=== PATIENT | male | born 1965 | race Caucasian/White ===

== ENCOUNTER 2018-05-16 14:17 | Inpatient (IN) | payer OTHER ==
[~2018-05-16] VITALS: Ht 177.8 cm; Wt 95.3 kg
[2018-05-16] MEDS ORDERED: DEPO-TESTOSTER100 MG IM (14:28)
--- NOTE | 2018-05-16 14:45 | Emergency Room Report ---
History of Present Illness General Chief Complaint: Abnormal Labs Source: Patient Present Illness HPI 52-year-old male without any significant history presenting with 3 weeks of generalized weakness fatigue nausea. Patient had lab tests done by his doctor and was told that he has an elevated creatinine as well as elevated calcium levels. Patient just states that he has had very little appetite and also has just felt very generally weak. He denies any actual abdominal pain just complains of nausea. No vomiting. No fever no chills. Does complain of polydipsia and polyuria. States that this has never happened before. He does not take any medications and no vitamins. Denies any actual weight loss. No swelling of his throat. Allergies: Coded Allergies: No Known Allergies (Unverified , 05/16/18) Patient History Past Medical History: see triage record Past Surgical History: none Pertinent Family History: none Reviewed Nursing Documentation: PMH: Agreed; PSxH: Agreed Nursing Documentation-PMH Hx Hypertension: Yes Review of Systems All Other Systems: negative except mentioned in HPI Physical Exam Vital Signs Date Time Temp Pulse Resp B/P (MAP) Pulse Ox O2 Delivery O2 Flow Rate FiO2 05/16/18 14:24 98.5 82 17 127/85 97 Room Air 98.4 Sp02 EP Interpretation: reviewed, normal General Appearance: alert, GCS 15, non-toxic, mild distress Head: normocephalic, atraumatic Eyes: bilateral eye normal inspection, bilateral eye PERRL, bilateral eye EOMI ENT: normal ENT inspection, normal pharynx, normal voice, moist mucus membranes Neck: normal inspection, full range of motion, supple Respiratory: normal inspection, lungs clear, normal breath sounds, no respiratory distress, no retraction, no wheezing, speaking full sentences, chest symmetrical Cardiovascular #1: normal inspection, regular rate, rhythm, no edema, normal capillary refill Cardiovascular #2: 2+ radial (R), 2+ radial (L) Gastrointestinal: normal inspection, non tender, soft, non-distended, no guarding Genitourinary: no CVA tenderness Musculoskeletal: normal inspection, back normal, normal range of motion, non- tender Neurologic: normal inspection, alert, oriented x3, responsive, motor strength/ tone normal, sensory intact, normal gait, speech normal Psychiatric: normal inspection, judgement/insight normal, memory normal Skin: normal inspection, normal color, no rash, warm/dry, well hydrated, normal turgor Medical Decision Making Diagnostic Impression: Primary Impression: Hypercalcemia Additional Impression: Renal insufficiency ER Course 52-year-old male with abnormal left chest hypercalcemia and elevated creatinine DDX: Hypercalcemia due to malignancy, hyperparathyroidism, vitamin D intoxication, multiple myeloma, other endocrine abnormalities Plan: Obtain labs, ua, EKG, CXR Fluids ER course: Patient has been monitored during ED stay, HD stable He is given 2 L of normal saline [facility] does not carry calcitonin IM/SQ version and the intranasal form is not effective for hypercalcemia Disposition: Patient is to be admitted to telemetry D/W hospitalist Dr Oleary Please note that this Emergency Department Report was dictated using [employer] technology software, occasionally this can lead to erroneous entry secondary to interpretation by the dictation equipment. EKG Diagnostic Results EP Interpretation: Yes Rate: normal Rhythm: NSR ST Segments: No acute changes , however prolonged OK at 152 as well as slight shortening of the QTC at 371 ASA given to patient: No Rhythm Strip EP Interpretation: Yes Rate: 80 Rhythm: NSR, no PVCs, no ectopy Chest X-ray CXR: Ordered: Yes 1 view Indication: Rule out mass EP interpretation: Yes Interpretation: No consolidation, no effusion, no PTX, no acute cardiopulmonary disease Impression: No acute disease Electronically signed by Reinier Strong MD Laboratory Tests Test 05/16/18 14:45 05/16/18 14:57 Urine Color Yellow Urine Appearance Clear Urine pH 6.5 (4.5-8.0) Urine Specific [place] 1.015 (1.005-1.035) Urine Protein Negative (NEGATIVE) Urine Glucose (UA) Negative (NEGATIVE) Urine Ketones Negative (NEGATIVE) Urine Occult Blood 4+ (NEGATIVE) H Urine Nitrite Negative (NEGATIVE) Urine Bilirubin Negative (NEGATIVE) Urine Urobilinogen 1 MG/DL (0.0-1.0) H Urine Leukocyte Esterase Negative (NEGATIVE) Urine RBC 5-10 /HPF (0 - 0) H Urine WBC 0-2 /HPF (0 - 0) Urine Squamous Epithelial Cells None /LPF (NONE/OCC) Urine Amorphous Sediment Few /LPF (NONE) H Urine Bacteria Occasional /HPF (NONE) White Blood Count 8.0 K/UL (4.8-10.8) Red Blood Count 5.73 M/UL (4.70-6.10) Hemoglobin 14.9 G/DL (14.2-18.0) Hematocrit 48.3 % (42.0-52.0) Mean Corpuscular Volume 84 FL (80-99) Mean Corpuscular Hemoglobin 25.9 PG (27.0-31.0) L Mean Corpuscular Hemoglobin Concent 30.8 G/DL (32.0-36.0) L Red Cell Distribution Width 18.8 % (11.6-14.8) H Platelet Count 303 K/UL (150-450) Mean Platelet Volume 7.2 FL (6.5-10.1) Neutrophils (%) (Auto) 58.8 % (45.0-75.0) Lymphocytes (%) (Auto) 25.2 % (20.0-45.0) Monocytes (%) (Auto) 13.2 % (1.0-10.0) H Eosinophils (%) (Auto) 1.6 % (0.0-3.0) Basophils (%) (Auto) 1.3 % (0.0-2.0) Sodium Level 137 MMOL/L (136-145) Potassium Level 4.8 MMOL/L (3.5-5.1) Chloride Level 103 MMOL/L (98-107) Carbon Dioxide Level 30 MMOL/L (21-32) Anion Gap 4 mmol/L (5-15) L Blood Urea Nitrogen 22 mg/dL (7-18) H Creatinine 2.1 MG/DL (0.55-1.30) H Estimate Glomerular Filtration Rate 33.2 mL/min (>60) Glucose Level 101 MG/DL (74-106) Calcium Level 14.4 MG/DL (8.5-10.1) *H Calcium (Send out) Pending Ionized Calcium (Measured) Pending Phosphorus Level 3.5 MG/DL (2.5-4.9) Magnesium Level 1.4 MG/DL (1.8-2.4) L Total Bilirubin 0.9 MG/DL (0.2-1.0) Aspartate Amino Transferase (AST) 63 U/L (15-37) H Alanine Aminotransferase (ALT) 59 U/L (12-78) Alkaline Phosphatase 48 U/L (46-116) Troponin I 0.009 ng/mL (0.000-0.056) Total Protein 7.4 G/DL (6.4-8.2) Albumin 3.1 G/DL (3.4-5.0) L Globulin 4.3 g/dL Albumin/Globulin Ratio 0.7 (1.0-2.7) L Parathyroid Hormone (Intact) Pending Last Vital Signs Date Time Temp Pulse Resp B/P (MAP) Pulse Ox O2 Delivery O2 Flow Rate FiO2 05/16/18 14:24 98.5 82 17 127/85 97 Room Air 98.4 Disposition: ADMITTED INPATIENT Condition: Serious RetinoReinier M.D. May 16, 2018 14:45
[2018-05-16 15:16] LABS: BASOPHILS % (AUTO) 1.3 % (0.0-2.0); EOSINOPHILS % (AUTO) 1.6 % (0.0-3.0); HEMATOCRIT 48.3 % (42.0-52.0); HEMOGLOBIN 14.9 G/DL (14.2-18.0); LYMPHOCYTES % (AUTO) 25.2 % (20.0-45.0); MEAN CORPUSCULAR VOLUME 84 FL (80-99); MONOCYTES % (AUTO) 13.2 % (1.0-10.0); NEUTROPHILS % (AUTO) 58.8 % (45.0-75.0); PLATELET COUNT 303 K/UL (150-450); RED BLOOD COUNT 5.73 M/UL (4.70-6.10); RED CELL DISTRIBUTION WIDTH 18.8 % (11.6-14.8)
--- NOTE | 2018-05-16 15:23 | Diagnostic Imaging Report ---
Indication: Chest pain Comparison: None A single view chest radiograph was obtained. Findings: Cardiomediastinal appearance is within normal limits for age. Pulmonary vascularity is appropriate. The diaphragmatic contour is smooth and costophrenic angles are sharp. No pleural effusions are identified. The bones are unremarkable. Impression: No acute findings
[2018-05-16 15:32] LABS: ALANINE AMINOTRANSFERASE 59 U/L (12-78); ALBUMIN 3.1 G/DL (3.4-5.0); ALBUMIN/GLOBULIN RATIO 0.7 (1.0-2.7); ALKALINE PHOSPHATASE 48 U/L (46-116); ANION GAP 4 mmol/L (5-15); ASPARTATE AMINO TRANSFERASE 63 U/L (15-37); BILIRUBIN,TOTAL 0.9 MG/DL (0.2-1.0); BLOOD UREA NITROGEN 22 mg/dL (7-18); CARBON DIOXIDE 30 MMOL/L (21-32); CHLORIDE 103 MMOL/L (98-107); CREATININE 2.1 MG/DL (0.55-1.30); PHOSPHORUS 3.5 MG/DL (2.5-4.9); POTASSIUM 4.8 MMOL/L (3.5-5.1); SODIUM 137 MMOL/L (136-145)
[2018-05-16 15:33] LABS: CALCIUM 14.4 MG/DL (8.5-10.1)
[2018-05-16 15:36] VITALS: BP 121/80
[2018-05-16] MEDS ORDERED: IRBESARTAN-HCT1 EAC2 PO (17:17)
[2018-05-16] MEDS ORDERED: DEXILANT60 MG ORAL (17:19)
[2018-05-16] MEDS ORDERED: ANASTROZOLE1 MG PO (17:19)
[2018-05-16] MEDS ORDERED: ATORVASTATIN CA10 MG ORAL (17:19)
[2018-05-16] MEDS ORDERED: AMBIEN10 M1 ORAL (17:19)
[2018-05-16 17:45] LABS: APPEARANCE,URINE CLEAR; BILIRUBIN, URINE NEGATIVE (NEGATIVE); GLUCOSE, URINE (UA) NEGATIVE (NEGATIVE); KETONES,URINE NEGATIVE (NEGATIVE); LEUKOCYTE ESTERASE ,URINE NEGATIVE (NEGATIVE); NITRITE,URINE NEGATIVE (NEGATIVE); PH,URINE 6.5 (4.5-8.0); PROTEIN,URINE NEGATIVE (NEGATIVE); UROBILINOGEN,URINE 1 MG/DL (0.0-1.0)
[2018-05-16 17:46] LABS: COLOR,URINE YELLOW
[2018-05-16 18:31] VITALS: BP 115/74
[2018-05-16 19:35] VITALS: BP 122/80
[2018-05-16 20:00] VITALS: BP 136/91
[2018-05-16] MEDS ORDERED: Acetaminophen 500mg (ES) tab ORAL PRN (20:00)
--- NOTE | 2018-05-16 20:17 | Consultation ---
Consult Note Consult Note asked to eval for renal failure and Hypercalcemia 52-year-old male without any significant history presenting with 3 weeks of generalized weakness fatigue nausea. Patient had lab tests done by his doctor and was told that he has an elevated creatinine as well as elevated calcium levels. Patient just states that he has had very little appetite and also has just felt very generally weak. He denies any actual abdominal pain just complains of nausea. No vomiting. No fever no chills. Does complain of polydipsia and polyuria. States that this has never happened before. He does not take any medications and no vitamins. Denies any actual weight loss. No swelling of his throat. HTN on HCTZ and Ibesartan has frequent urination and thirst and weakness . Assessment/Plan Sever HyperCalcemia , Likely due to dehydration + HCTZ Acute renal failure Low albumin level Plan Hydrate- PRN meds for BP no HCTZ monitor Ca and Phos PTH and TSH level Vit D level Per orders discussed with RONEY BARAJAS May 16, 2018 20:17
[2018-05-16] MEDS: Tamsulosin 0.4mg cap ORAL SCH (20:58)
[2018-05-17] VITALS: BP 124/71
[2018-05-17 04:00] VITALS: BP 136/85
[2018-05-17] MEDS ORDERED: Milk of Magnesia 30ml Ud ORAL PRN (07:30)
[2018-05-17 07:35] LABS: BASOPHILS % (AUTO) 1.1 % (0.0-2.0); EOSINOPHILS % (AUTO) 3.8 % (0.0-3.0); HEMATOCRIT 44.4 % (42.0-52.0); LYMPHOCYTES % (AUTO) 22.5 % (20.0-45.0); MEAN CORPUSCULAR VOLUME 85 FL (80-99); NEUTROPHILS % (AUTO) 60.6 % (45.0-75.0); PLATELET COUNT 255 K/UL (150-450); RED BLOOD COUNT 5.23 M/UL (4.70-6.10); RED CELL DISTRIBUTION WIDTH 19.2 % (11.6-14.8); WHITE BLOOD COUNT 7.2 K/UL (4.8-10.8)
[2018-05-17 08:00] VITALS: BP 141/83
[2018-05-17] MEDS: Sennosides 8.6mg ORAL SCH (08:19)
[2018-05-17 08:21] LABS: % IRON SATURATION 14 % (15-50); IRON 59 ug/dL (50-175); TOTAL IRON BINDING CAPACITY 429 ug/dL (250-450)
[2018-05-17 08:35] LABS: ALANINE AMINOTRANSFERASE 53 U/L (12-78); ALBUMIN 2.6 G/DL (3.4-5.0); ALBUMIN/GLOBULIN RATIO 0.7 (1.0-2.7); ALKALINE PHOSPHATASE 44 U/L (46-116); ANION GAP 4 mmol/L (5-15); ASPARTATE AMINO TRANSFERASE 37 U/L (15-37); BILIRUBIN,TOTAL 0.5 MG/DL (0.2-1.0); BLOOD UREA NITROGEN 21 mg/dL (7-18); CALCIUM 11.8 MG/DL (8.5-10.1); CARBON DIOXIDE 28 MMOL/L (21-32); CHLORIDE 107 MMOL/L (98-107); CHOLESTEROL 80 MG/DL (< 200); CREATINE KINASE 343 U/L (26-308); CREATININE 1.9 MG/DL (0.55-1.30); FERRITIN 60 NG/ML (8-388); GAMMA GLUTAMYL TRANSPEPTIDASE 13 U/L (5-85); HDL CHOLESTEROL 13 MG/DL (40-60); PHOSPHORUS 2.6 MG/DL (2.5-4.9); POTASSIUM 4.5 MMOL/L (3.5-5.1); SODIUM 139 MMOL/L (136-145); TRIGLYCERIDES 59 MG/DL (30-150)
[2018-05-17] MEDS ORDERED: Docusate 100mg cap ORAL SCH (09:00)
[2018-05-17 12:00] VITALS: BP 126/79
--- NOTE | 2018-05-17 12:01 | History and Physical Report ---
DATE OF ADMISSION: 05/16/2018 HISTORY: The patient is here for renal failure and hypercalcemia. The patient has calcium of 14 and has severe dehydration. He has been complaining of weakness, nausea, and fatigue for 3 weeks as well as frequent urination and somewhat nausea and borderline constipation. The patient takes diuretics for his elevated blood pressure. The patient also has renal failure and has been having fatigue for 3 weeks as well as frequent urination. Denies abdominal pain. Denies any pain. Denies any cold symptoms. Denies orthopnea. PAST MEDICAL HISTORY: Significant for hyperlipidemia, gastroesophageal reflux disease, hypertension, low testosterone, insomnia, and left shoulder pain, which is chronic. PAST SURGICAL HISTORY: Kidney stones removal. ALLERGIES: No known allergies. SOCIAL HISTORY: The patient has history of drug abuse. No history of smoking. No history of alcohol abuse. FAMILY HISTORY: Noncontributory. REVIEW OF SYSTEMS: HEENT: Denies headaches. RESPIRATORY: Denies shortness of breath. Denies cough. CARDIOVASCULAR: Denies chest pain. No orthopnea. GASTROINTESTINAL: He does have nausea and constipation. Denies abdominal pain. EXTREMITIES: Does have chronic left shoulder pain, which is chronic. Denies any angina, but does have fatigue and weakness for three weeks. PHYSICAL EXAMINATION: VITAL SIGNS: Temperature 98.3, pulse is 94, and blood pressure is 115/74. HEENT: PERRLA. NECK: Supple. No lymphadenopathy. CHEST: Clear to auscultation. GASTROINTESTINAL: Soft, nontender, and nondistended. No organomegaly. EXTREMITIES: No edema. Reflexes are equal on both sides. Moves all four extremities. NEUROLOGIC: Cranial nerves II through XII are intact. LABORATORY DATA: WBC of 8, hemoglobin of 14.9 and platelets of 303. Sodium 137, potassium 4.8, chloride 103, carbon dioxide of 30, BUN of 22, creatinine of 2.1, and glucose of 101. Ionized calcium 1.65. Magnesium 1.4. Calcium of 14.4. ASSESSMENT AND PLAN: Hypercalcemia, which is causing most of his symptoms. I have asked Dr. Salinas to see the patient for the treatment of dehydration. Hypercalcemia could be also due to his diuretic use. The patient will need aggressive intravenous hydration. Rosita Larsen M.D. DR: JESS JOB#: [id number] CC:
--- NOTE | 2018-05-17 13:08 | Cardiology Report ---
APPROVED REPORT EKG Measurement Heart [id number] Normal sinus rhythm Nonspecific T wave abnormality Abnormal ECG
--- NOTE | 2018-05-17 13:22 | Nephrology Progress Note ---
Assessment/Plan Problem List: (1) Renal insufficiency (2) Hypercalcemia Assessment: high PTH (3) Hypoalbuminemia Assessment: ? decrease production?? (4) Hyperparathyroidism Assessment Ca lower , but corrected for low albumin remains high Plan NS 200 cc hour- AREDIA 60 mg once Mag IV monitor Ca Phos Kidney MICAH Subjective ROS Limited/Unobtainable: No Constitutional: Reports: malaise Objective Objective Last 24 Hour Vital Signs Date Time Temp Pulse Resp B/P (MAP) Pulse Ox O2 Delivery O2 Flow Rate FiO2 05/17/18 08:00 97 05/17/18 08:00 97.3 95 19 141/83 97 Room Air 97.3 05/17/18 04:00 98.6 82 18 136/85 97 Room Air 98.6 05/17/18 04:00 74 05/17/18 00:00 90 05/17/18 00:00 98.2 81 18 124/71 95 Room Air 98.2 05/16/18 20:00 98.2 88 18 136/91 96 Room Air 98.2 05/16/18 20:00 72 05/16/18 19:35 98.3 88 20 122/80 98 Room Air 208.9 05/16/18 19:35 98.3 88 20 122/80 98 Room Air 98.3 05/16/18 18:31 98.3 94 15 115/74 97 Room Air 98.3 05/16/18 15:36 77 16 121/80 100 Room Air 05/16/18 14:24 98.5 82 17 127/85 97 Room Air 98.4 Intake and Output 05/16/18 05/17/18 19:00 07:00 Intake Total 2000 ml 2660 ml Output Total 850 ml Balance 2000 ml 1810 ml Intake Oral 800 ml IV Total 2000 ml 1860 ml Output Urine Total 850 ml # Voids 1 2 Laboratory Tests 05/16/18 14:45: Urine Color Yellow, Urine Appearance Clear, Urine pH 6.5, Urine Specific [place] 1.015, Urine Protein Negative, Urine Glucose (UA) Negative, Urine Ketones Negative, Urine Occult Blood 4+H, Urine Nitrite Negative, Urine Bilirubin Negative, Urine Urobilinogen 1H, Urine Leukocyte Esterase Negative, Urine RBC 5-10H, Urine WBC 0-2, Urine Squamous Epithelial Cells None, Urine Amorphous Sediment FewH, Urine Bacteria Occasional, Urine Random Sodium 76 05/16/18 14:57: White Blood Count 8.0, Red Blood Count 5.73, Hemoglobin 14.9, Hematocrit 48.3, Mean Corpuscular Volume 84, Mean Corpuscular Hemoglobin 25.9L, Mean Corpuscular Hemoglobin Concent 30.8L, Red Cell Distribution Width 18.8H, Platelet Count 303 , Mean Platelet Volume 7.2, Neutrophils (%) (Auto) 58.8, Lymphocytes (%) (Auto) 25.2, Monocytes (%) (Auto) 13.2H, Eosinophils (%) (Auto) 1.6, Basophils (%) ( Auto) 1.3, Sodium Level 137, Potassium Level 4.8, Chloride Level 103, Carbon Dioxide Level 30, Anion Gap 4L, Blood Urea Nitrogen 22H, Creatinine 2.1H, Estimat Glomerular Filtration Rate 33.2, Glucose Level 101, Calcium Level 14.4*H , Calcium (Send out) 14.2*H, Ionized Calcium (Measured) 1.65*H, Phosphorus Level 3.5, Magnesium Level 1.4L, Total Bilirubin 0.9, Aspartate Amino Transf ( AST/SGOT) 63H, Alanine Aminotransferase (ALT/SGPT) 59, Alkaline Phosphatase 48, Troponin I 0.009, C-Reactive Protein, Quantitative < 0.4, Total Protein 7.4, Albumin 3.1L, Globulin 4.3, Albumin/Globulin Ratio 0.7L, PTH (Intact) Whole Molecule Comment, Parathyroid Hormone (Intact) 245H 05/17/18 06:10: White Blood Count 7.2, Red Blood Count 5.23, Hemoglobin 14.0L, Hematocrit 44.4, Mean Corpuscular Volume 85, Mean Corpuscular Hemoglobin 26.7L, Mean Corpuscular Hemoglobin Concent 31.5L, Red Cell Distribution Width 19.2H, Platelet Count 255 , Mean Platelet Volume 7.4, Neutrophils (%) (Auto) 60.6, Lymphocytes (%) (Auto) 22.5, Monocytes (%) (Auto) 12.0H, Eosinophils (%) (Auto) 3.8H, Basophils (%) ( Auto) 1.1, Sodium Level 139, Potassium Level 4.5, Chloride Level 107, Carbon Dioxide Level 28, Anion Gap 4L, Blood Urea Nitrogen 21H, Creatinine 1.9H, Estimat Glomerular Filtration Rate 37.3, Glucose Level 98, Calcium Level 11.8H, Phosphorus Level 2.6, Magnesium Level 1.3L, Total Bilirubin 0.5, Aspartate Amino Transf (AST/SGOT) 37, Alanine Aminotransferase (ALT/SGPT) 53, Alkaline Phosphatase 44L, Troponin I 0.021, Total Protein 6.4, Albumin 2.6L, Globulin 3.8 , Albumin/Globulin Ratio 0.7L, Hemoglobin A1c 5.2, Uric Acid 5.9, Iron Level 59 , Total Iron Binding Capacity 429, Percent Iron Saturation 14L, Unsaturated Iron Binding 370H, Ferritin 60, Gamma Glutamyl Transpeptidase 13, Total Creatine Kinase 343H, Pro-B-Type Natriuretic Peptide 15, Triglycerides Level 59 , Cholesterol Level 80, LDL Cholesterol 73, HDL Cholesterol 13L, Cholesterol/ HDL Ratio 6.2H, Prostate Specific Antigen < 0.10L, Vitamin B12 Level 784, Vitamin D 25-Hydroxy [Pending], 25-Hydroxy Vitamin D2 [Pending], 25-Hydroxy Vitamin D3 [Pending], Folate 12.3, Thyroid Stimulating Hormone (TSH) 1.531, Total Testosterone [Pending] Height (Feet): 5 Height (Inches): 10.00 Weight (Pounds): 210 General Appearance: no apparent distress Cardiovascular: normal rate Respiratory/Chest: lungs clear Abdomen: soft RONEY GROSS May 17, 2018 13:22
[2018-05-17 14:32] LABS: APPEARANCE,URINE CLEAR; BILIRUBIN, URINE NEGATIVE (NEGATIVE); GLUCOSE, URINE (UA) NEGATIVE (NEGATIVE); KETONES,URINE NEGATIVE (NEGATIVE); LEUKOCYTE ESTERASE ,URINE NEGATIVE (NEGATIVE); NITRITE,URINE NEGATIVE (NEGATIVE); PH,URINE 6.5 (4.5-8.0); PROTEIN,URINE NEGATIVE (NEGATIVE); UROBILINOGEN,URINE 4 MG/DL (0.0-1.0)
[2018-05-17 14:38] LABS: COLOR,URINE YELLOW
--- NOTE | 2018-05-17 15:54 | Diagnostic Imaging Report ---
Indication: Acute renal failure, elevated calcium, elevated creatinine Technique: Grayscale and duplex images of the kidneys, retroperitoneum, and bladder were obtained. Comparison: none Findings: Right kidney measures 14.6 cm in length. Left kidney measures 12.2 cm in length. Both kidneys demonstrate normal echogenicity. No hydronephrosis. Shadowing echogenic foci are seen in the left lower pole renal sinus. No other focal abnormality. Bladder volume is 316 mL. Prominent prostate with calcifications, volume calculated at 41 mL. Bilateral ureteral jets are demonstrated. Normal inferior vena cava. Impression: Negative for hydronephrosis Possible left renal calyceal calculi Prominent prostate.
[2018-05-17 16:00] VITALS: BP 146/78
[2018-05-17] MEDS ORDERED: Pamidronate Disodium Inj 60 MG in Sodium Chloride 500ML 550 ML IVPB SCH (16:00)
[2018-05-17] MEDS: Docusate 100mg cap ORAL SCH (17:14)
[2018-05-17 20:00] VITALS: BP 114/86
[2018-05-17] MEDS: Tamsulosin 0.4mg cap ORAL SCH (21:38)
[2018-05-18] VITALS: BP 102/62
[2018-05-18 04:00] VITALS: BP 117/69
[2018-05-18 05:50] LABS: BASOPHILS % (AUTO) 1.2 % (0.0-2.0); EOSINOPHILS % (AUTO) 4.6 % (0.0-3.0); HEMATOCRIT 37.3 % (42.0-52.0); HEMOGLOBIN 12.2 G/DL (14.2-18.0); LYMPHOCYTES % (AUTO) 24.4 % (20.0-45.0); MEAN CORPUSCULAR VOLUME 85 FL (80-99); MONOCYTES % (AUTO) 11.7 % (1.0-10.0); NEUTROPHILS % (AUTO) 58.1 % (45.0-75.0); PLATELET COUNT 210 K/UL (150-450); RED BLOOD COUNT 4.39 M/UL (4.70-6.10); RED CELL DISTRIBUTION WIDTH 18.9 % (11.6-14.8); WHITE BLOOD COUNT 6.6 K/UL (4.8-10.8)
[2018-05-18 06:11] LABS: ALANINE AMINOTRANSFERASE 42 U/L (12-78); ALBUMIN 2.2 G/DL (3.4-5.0); ALBUMIN/GLOBULIN RATIO 0.7 (1.0-2.7); ALKALINE PHOSPHATASE 40 U/L (46-116); ANION GAP 1 mmol/L (5-15); ASPARTATE AMINO TRANSFERASE 45 U/L (15-37); BILIRUBIN,TOTAL 0.3 MG/DL (0.2-1.0); BLOOD UREA NITROGEN 20 mg/dL (7-18); CALCIUM 10.4 MG/DL (8.5-10.1); CARBON DIOXIDE 28 MMOL/L (21-32); CHLORIDE 110 MMOL/L (98-107); CREATININE 1.9 MG/DL (0.55-1.30); PHOSPHORUS 2.4 MG/DL (2.5-4.9); POTASSIUM 4.9 MMOL/L (3.5-5.1); SODIUM 139 MMOL/L (136-145)
[2018-05-18 08:00] VITALS: BP 122/76
[2018-05-18] MEDS: Sennosides 8.6mg ORAL SCH (09:53)
[2018-05-18] MEDS: Docusate 100mg cap ORAL SCH ×3 (09:53→18:23)
--- NOTE | 2018-05-18 10:37 | Nephrology Progress Note ---
Assessment/Plan Problem List: (1) Hypercalcemia Assessment: high PTH (2) Renal insufficiency Assessment: likely chronic (3) Hypoalbuminemia Assessment: ? decrease production?? (4) Hyperparathyroidism Assessment: likely Parathyroid Adenoma Assessment Ca lower , but corrected for low albumin remains high Plan NS down to 125 cc hour AREDIA 60 mg once given 05/17 Mag IV again monitor Ca Phos Phos PO Kidney MICAH noted need Parathyroid imaging and if Adenoma then surgery waiting for Testostron and Vit D level Endo advise Subjective ROS Limited/Unobtainable: No Constitutional: Reports: other - stronger Objective Objective Last 24 Hour Vital Signs Date Time Temp Pulse Resp B/P (MAP) Pulse Ox O2 Delivery O2 Flow Rate FiO2 05/18/18 04:00 98.1 70 20 117/69 95 Room Air 98.1 05/18/18 04:00 67 05/18/18 00:00 98.6 70 18 102/62 95 Room Air 98.6 05/18/18 00:00 70 05/17/18 20:00 98.9 75 18 114/86 96 Room Air 98.9 05/17/18 20:00 76 05/17/18 16:00 78 05/17/18 16:00 97.4 83 19 146/78 96 Room Air 97.4 05/17/18 12:00 108 05/17/18 12:00 97.9 83 20 126/79 96 Room Air 97.9 Intake and Output 05/17/18 05/18/18 19:00 07:00 Intake Total 2800 ml 2899.6 ml Output Total 1650 ml 875 ml Balance 1150 ml 2024.6 ml Intake Oral 800 ml 800 ml IV Total 2000 ml 2099.6 ml Output Urine Total 1650 ml 875 ml # Voids 1 Laboratory Tests 05/17/18 12:00: Urine Color Yellow, Urine Appearance Clear, Urine pH 6.5, Urine Specific [place] 1.015, Urine Protein Negative, Urine Glucose (UA) Negative, Urine Ketones Negative, Urine Occult Blood 3+H, Urine Nitrite Negative, Urine Bilirubin Negative, Urine Urobilinogen 4H, Urine Leukocyte Esterase Negative, Urine RBC 2-4H, Urine WBC 0-2, Urine Squamous Epithelial Cells Few, Urine Bacteria Occasional 05/18/18 05:20: White Blood Count 6.6, Red Blood Count 4.39L, Hemoglobin 12.2L, Hematocrit 37.3L , Mean Corpuscular Volume 85, Mean Corpuscular Hemoglobin 27.8, Mean Corpuscular Hemoglobin Concent 32.6, Red Cell Distribution Width 18.9H, Platelet Count 210, Mean Platelet Volume 8.8, Neutrophils (%) (Auto) 58.1, Lymphocytes (%) (Auto) 24.4, Monocytes (%) (Auto) 11.7H, Eosinophils (%) (Auto) 4.6H, Basophils (%) (Auto) 1.2, Sodium Level 139, Potassium Level 4.9, Chloride Level 110H, Carbon Dioxide Level 28, Anion Gap 1L, Blood Urea Nitrogen 20H, Creatinine 1.9H, Estimat Glomerular Filtration Rate 37.3, Glucose Level 90, Calcium Level 10.4H, Phosphorus Level 2.4L, Magnesium Level 1.6L, Total Bilirubin 0.3, Aspartate Amino Transf (AST/SGOT) 45H, Alanine Aminotransferase ( ALT/SGPT) 42, Alkaline Phosphatase 40L, Total Protein 5.5L, Albumin 2.2L, Globulin 3.3, Albumin/Globulin Ratio 0.7L Height (Feet): 5 Height (Inches): 10.00 Weight (Pounds): 210 General Appearance: no apparent distress Objective no change RONEY GROSS May 18, 2018 10:37
[2018-05-18 12:00] VITALS: BP 124/80
[2018-05-18] MEDS: Phospha 250 Neutral tab ORAL SCH ×2 (12:16→18:24)
[2018-05-18 16:00] VITALS: BP 132/80
--- NOTE | 2018-05-18 16:40 | Diagnostic Imaging Report ---
EXAM: US Soft Tissues Head and Neck, Thyroid CLINICAL HISTORY: SCREEN TECHNIQUE: Real-time ultrasound scan of the thyroid gland and soft tissues of the neck with image documentation. COMPARISON: No relevant prior studies available. FINDINGS: Left thyroid lobe: Left lobe of the thyroid gland measures 3.8 x 1.7 x 2.1 cm. Nodule measures 2 x 0.9 cm. Right thyroid lobe: Right lobe of the thyroid measures 3.8 x 1.5 x 1.7 cm. Nodules, largest measures 9 mm. Isthmus: The isthmus measures 3 mm. No enlarged or calcified nodules. IMPRESSION: Bilateral thyroid nodules.
[2018-05-18] MEDS ORDERED: Tubing IV Secondary IV ONE ×2 (17:32→17:51)
--- NOTE | 2018-05-18 19:45 | Consultation ---
DATE OF CONSULTATION: 05/18/2018 NOTE: POOR AUDIO ENDOCRINOLOGY CONSULTATION CONSULTING PHYSICIAN: Julius Madrigal M.D. REFERRING PHYSICIAN: Marcelo Salinas M.D. HISTORY OF PRESENT ILLNESS: The patient is a 52-year-old male who was admitted with renal failure and hypercalcemia which was noted on the recent visit with his primary care physician, Dr. Caleb Ingram. The patient went to see his primary care physician complaining of a progressive weakness. On presentation, he was noted to have a serum calcium of 14.4 with a creatinine of 2.1. He was started on IV hydration and given a dose of Aredia. Serum calcium significantly dropped to 11.8 and subsequently to 10.4. The patient's parathyroid hormone level is 250 . TSH is 1.5 and vitamin D metabolites are pending. PAST MEDICAL HISTORY: 1. Nephrolithiasis in his 20s. 2. Hypogonadism. 3. Dyslipidemia. 4. GERD. 5. Hypertension. 6. Insomnia. 7. Shoulder pain. PAST SURGICAL HISTORY: Right kidney stone removal. MEDICATIONS: As an outpatient 1. Anastrozole. 2. Atorvastatin. 3. Dexilant. 4. Irbesartan and hydrochlorothiazide. 5. Testosterone injection 100 mg weekly. 6. Ambien. ALLERGY TO MEDICATION: None. SOCIAL HISTORY: The patient is a drug rep. No history of smoking or alcohol use. FAMILY HISTORY: Noncontributory. REVIEW OF SYSTEMS: As per history of present illness. PHYSICAL EXAMINATION: VITAL SIGNS: Blood pressure is 120/80, pulse 72, temperature 98, and respiratory rate 18. HEENT: Pupils are equal and reactive to light and accommodation. Sclerae anicteric. NECK: No JVD. No thyromegaly. LUNGS: Clear. HEART: Regular rate and rhythm. ABDOMEN: Positive bowel sounds. EXTREMITIES: No clubbing, cyanosis, or edema. LABORATORY AND DIAGNOSTIC DATA: Laboratory values discussed in history of present illness. DIAGNOSES: 1. Primary hyperparathyroidism with hypercalcemia. 2. Acute kidney injury. 3. Hypoalbuminemia. DISCUSSION: Primary hyperparathyroidism was confirmed since the PTH and serum calcium are both elevated and that had led to acute kidney injury. Serum calcium as well as creatinine has been improving after administration of IV fluids. The patient received a dose of Aredia, which is appropriate as the calcium is coming down. We should be able to discharge this patient by tomorrow. We are getting a thyroid ultrasound now, which will help with the localization of the parathyroid adenoma, but he does need to have an official parathyroid scan to be done as an outpatient. He is a surgical candidate and as an outpatient, he will be referred to a parathyroid surgeon. Thank you, Dr. Salinas, for the courtesy of this consultation. Julius Madrigal M.D. DR: WILLIAM JOB#: [id number] CC: DOMINIQUE
[2018-05-18 20:00] VITALS: BP 125/68
[2018-05-18] MEDS: Tamsulosin 0.4mg cap ORAL SCH (20:27)
--- NOTE | 2018-05-18 20:59 | General Progress Note ---
Assessment/Plan Problem List: (1) Renal insufficiency ICD Codes: N28.9 - Disorder of kidney and ureter, unspecified SNOMED: 315719443, 683126513 (2) Hypercalcemia ICD Codes: E83.52 - Hypercalcemia SNOMED: 22673794, 565578742 (3) Hyperparathyroidism ICD Codes: E21.3 - Hyperparathyroidism, unspecified SNOMED: 99298992 Status: progressing Assessment/Plan hypercalcemia improved w hydration hyperparathroid consuled dr rg for treatment of hyper paraythryoid Subjective ROS Limited/Unobtainable: Yes Allergies: Coded Allergies: No Known Allergies (Unverified , 05/16/18) Objective Last 24 Hour Vital Signs Date Time Temp Pulse Resp B/P (MAP) Pulse Ox O2 Delivery O2 Flow Rate FiO2 05/18/18 16:00 91 05/18/18 16:00 98.2 79 23 132/80 99 Room Air 98.2 05/18/18 12:00 98.1 80 22 124/80 97 Room Air 98.1 05/18/18 12:00 88 05/18/18 08:00 98.2 80 22 122/76 99 Room Air 98.2 05/18/18 08:00 81 05/18/18 04:00 98.1 70 20 117/69 95 Room Air 98.1 05/18/18 04:00 67 05/18/18 00:00 98.6 70 18 102/62 95 Room Air 98.6 05/18/18 00:00 70 Intake and Output 05/17/18 05/18/18 19:00 07:00 Intake Total 2800 ml 2899.6 ml Output Total 1650 ml 875 ml Balance 1150 ml 2024.6 ml Intake Oral 800 ml 800 ml IV Total 2000 ml 2099.6 ml Output Urine Total 1650 ml 875 ml # Voids 1 Laboratory Tests 05/18/18 05:20: White Blood Count 6.6, Red Blood Count 4.39L, Hemoglobin 12.2L, Hematocrit 37.3L , Mean Corpuscular Volume 85, Mean Corpuscular Hemoglobin 27.8, Mean Corpuscular Hemoglobin Concent 32.6, Red Cell Distribution Width 18.9H, Platelet Count 210, Mean Platelet Volume 8.8, Neutrophils (%) (Auto) 58.1, Lymphocytes (%) (Auto) 24.4, Monocytes (%) (Auto) 11.7H, Eosinophils (%) (Auto) 4.6H, Basophils (%) (Auto) 1.2, Sodium Level 139, Potassium Level 4.9, Chloride Level 110H, Carbon Dioxide Level 28, Anion Gap 1L, Blood Urea Nitrogen 20H, Creatinine 1.9H, Estimat Glomerular Filtration Rate 37.3, Glucose Level 90, Calcium Level 10.4H, Phosphorus Level 2.4L, Magnesium Level 1.6L, Total Bilirubin 0.3, Aspartate Amino Transf (AST/SGOT) 45H, Alanine Aminotransferase ( ALT/SGPT) 42, Alkaline Phosphatase 40L, Total Protein 5.5L, Albumin 2.2L, Globulin 3.3, Albumin/Globulin Ratio 0.7L Height (Feet): 5 Height (Inches): 10.00 Weight (Pounds): 210 Rosita Larsen MD May 18, 2018 20:59
[2018-05-19] VITALS: BP 123/64
[2018-05-19 04:00] VITALS: BP 134/77
[2018-05-19 07:26] LABS: BASOPHILS % (AUTO) 1.2 % (0.0-2.0); EOSINOPHILS % (AUTO) 5.4 % (0.0-3.0); HEMOGLOBIN 12.3 G/DL (14.2-18.0); LYMPHOCYTES % (AUTO) 18.7 % (20.0-45.0); MEAN CORPUSCULAR VOLUME 83 FL (80-99); MONOCYTES % (AUTO) 10.4 % (1.0-10.0); NEUTROPHILS % (AUTO) 64.3 % (45.0-75.0); PLATELET COUNT 204 K/UL (150-450); RED BLOOD COUNT 4.57 M/UL (4.70-6.10); RED CELL DISTRIBUTION WIDTH 18.7 % (11.6-14.8); WHITE BLOOD COUNT 6.5 K/UL (4.8-10.8)
[2018-05-19 07:57] LABS: ALANINE AMINOTRANSFERASE 45 U/L (12-78); ALBUMIN 2.3 G/DL (3.4-5.0); ALBUMIN/GLOBULIN RATIO 0.7 (1.0-2.7); ALKALINE PHOSPHATASE 42 U/L (46-116); ANION GAP 3 mmol/L (5-15); ASPARTATE AMINO TRANSFERASE 38 U/L (15-37); BILIRUBIN,TOTAL 0.5 MG/DL (0.2-1.0); BLOOD UREA NITROGEN 17 mg/dL (7-18); CALCIUM 9.8 MG/DL (8.5-10.1); CARBON DIOXIDE 25 MMOL/L (21-32); CHLORIDE 110 MMOL/L (98-107); CREATININE 1.5 MG/DL (0.55-1.30); PHOSPHORUS 1.8 MG/DL (2.5-4.9); POTASSIUM 4.5 MMOL/L (3.5-5.1); SODIUM 138 MMOL/L (136-145)
[2018-05-19 08:00] VITALS: BP 128/70
[2018-05-19] MEDS: Docusate 100mg cap ORAL SCH ×2 (09:43→12:21)
[2018-05-19] MEDS: Phospha 250 Neutral tab ORAL SCH (09:43)
[2018-05-19] MEDS: Sennosides 8.6mg ORAL SCH (09:46)
--- NOTE | 2018-05-19 10:48 | General Progress Note ---
Assessment/Plan Problem List: (1) Thyroid nodule ICD Codes: E04.1 - Nontoxic single thyroid nodule SNOMED: 443073256 (2) Hyperparathyroidism ICD Codes: E21.3 - Hyperparathyroidism, unspecified SNOMED: 93351524 (3) Hypoalbuminemia ICD Codes: E88.09 - Other disorders of plasma-protein metabolism, not elsewhere classified SNOMED: 207490503 (4) Renal insufficiency ICD Codes: N28.9 - Disorder of kidney and ureter, unspecified SNOMED: 125107449, 770141953 (5) Hypercalcemia ICD Codes: E83.52 - Hypercalcemia SNOMED: 76132304, 317602380 Assessment/Plan serum Ca normalized replete Mg and Phos stable for DC home parathyroid scan as OP thyroid FNA as OP parathyroidectomy once work up is completed Subjective Allergies: Coded Allergies: No Known Allergies (Unverified , 05/16/18) All Systems: reviewed and negative except above Subjective doing fine no complaints Objective Last 24 Hour Vital Signs Date Time Temp Pulse Resp B/P (MAP) Pulse Ox O2 Delivery O2 Flow Rate FiO2 05/19/18 04:00 71 05/19/18 04:00 98.9 75 20 134/77 96 Room Air 98.9 05/19/18 00:00 98.8 71 18 123/64 97 Room Air 98.8 05/18/18 23:39 75 05/18/18 20:00 99.1 78 20 125/68 95 Room Air 99.1 05/18/18 19:50 82 05/18/18 16:00 91 05/18/18 16:00 98.2 79 23 132/80 99 Room Air 98.2 05/18/18 12:00 98.1 80 22 124/80 97 Room Air 98.1 05/18/18 12:00 88 Intake and Output 05/18/18 05/19/18 19:00 07:00 Intake Total 1745 ml 800 ml Output Total 400 ml 1350 ml Balance 1345 ml -550 ml Intake Oral 720 ml 800 ml IV Total 1025 ml Output Urine Total 400 ml 1350 ml # Voids 1 Laboratory Tests 05/19/18 05:50: White Blood Count 6.5, Red Blood Count 4.57L, Hemoglobin 12.3L, Hematocrit 38.0L , Mean Corpuscular Volume 83, Mean Corpuscular Hemoglobin 26.9L, Mean Corpuscular Hemoglobin Concent 32.3, Red Cell Distribution Width 18.7H, Platelet Count 204, Mean Platelet Volume 6.9, Neutrophils (%) (Auto) 64.3, Lymphocytes (%) (Auto) 18.7L, Monocytes (%) (Auto) 10.4H, Eosinophils (%) (Auto ) 5.4H, Basophils (%) (Auto) 1.2, Sodium Level 138, Potassium Level 4.5, Chloride Level 110H, Carbon Dioxide Level 25, Anion Gap 3L, Blood Urea Nitrogen 17, Creatinine 1.5H, Estimat Glomerular Filtration Rate 49.0, Glucose Level 90, Uric Acid 4.9, Calcium Level 9.8, Phosphorus Level 1.8L, Magnesium Level 1.6L, Total Bilirubin 0.5, Aspartate Amino Transf (AST/SGOT) 38H, Alanine Aminotransferase (ALT/SGPT) 45, Alkaline Phosphatase 42L, Total Protein 5.6L, Albumin 2.3L, Globulin 3.3, Albumin/Globulin Ratio 0.7L 05/19/18 07:55: C-Reactive Protein, Quantitative < 0.4 Height (Feet): 5 Height (Inches): 10.00 Weight (Pounds): 210 General Appearance: no apparent distress Neck: normal alignment Cardiovascular: normal rate Respiratory/Chest: chest wall non-tender Abdomen: normal bowel sounds Pelvis: normal external exam Edema: no edema noted Arm (L), no edema noted Arm (R), no edema noted Leg (L), no edema noted Leg (R), no edema noted Pedal (L), no edema noted Pedal (R), no edema noted Generalized Objective Current Medications Medications (Trade) Dose Ordered Sig/Cedrick Route PRN Reason Start Time Stop Time Status Last Admin Dose Admin Acetaminophen (Tylenol) 500 mg Q4H PRN ORAL Mild Pain/Temp > 100.5 05/16/18 20:00 06/15/18 19:59 05/17/18 21:39 Bisacodyl (Dulcolax) 10 mg DAILYPRN PRN RECTAL Constipation 05/17/18 07:30 06/16/18 07:29 Calcitonin [place] (Miacalcin) 1 sprays DAILY NASAL 05/18/18 11:00 06/17/18 10:59 05/19/18 09:42 Docusate Sodium (Colace) 100 mg TID ORAL 05/17/18 18:00 06/16/18 08:59 05/19/18 09:43 Lansoprazole (Prevacid) 30 mg DAILY ORAL 05/16/18 20:30 06/15/18 20:29 05/19/18 09:43 Magnesium Hydroxide (Mom) 30 ml DAILYPRN PRN ORAL Constipation 05/17/18 07:30 06/16/18 07:29 05/18/18 20:26 Magnesium Sulfate 100 ml @ 100 mls/hr Q1H IVPB 05/19/18 10:30 05/19/18 14:29 UNV Ondansetron HCl (Zofran) 4 mg Q6H PRN IVP Nausea & Vomiting 05/16/18 20:00 06/15/18 19:59 05/17/18 08:19 Phosphorus (Phospha 250 Neutral) 500 mg THREE TIMES A DAY ORAL 05/19/18 13:00 06/17/18 12:59 UNV Potassium Phosphate 20 mm/ Sodium Chloride 281.6667 ml @ 46.944 m... ONCE ONCE IVPB 05/19/18 10:30 05/19/18 16:29 UNV Sennosides (Senokot) 1 tab DAILY ORAL 05/17/18 09:00 06/16/18 08:59 05/19/18 09:46 Sodium Chloride 1,000 ml @ 125 mls/hr Q8H IV 05/18/18 10:30 06/15/18 10:29 05/19/18 02:47 Tamsulosin HCl (Flomax) 0.4 mg BEDTIME ORAL 05/16/18 21:00 06/15/18 20:59 05/18/18 20:27 Julius Madrigal MD May 19, 2018 10:48
--- NOTE | 2018-05-19 11:22 | Nephrology Progress Note ---
Assessment/Plan Problem List: (1) Hypercalcemia Assessment: high PTH (2) Renal insufficiency Assessment: likely chronic (3) Hypoalbuminemia Assessment: ? decrease production?? (4) Hyperparathyroidism Assessment: likely Parathyroid Adenoma Assessment Ca lower , Mag and Phos low Cr down to 1.5 has thyroid nodules in [facility] Plan OK TO DC FROM [facility] AND FOLLOW UP WITH DR VILLALPANDO OUT PATIENT NS down to 125 cc hour DC upon discharge AREDIA 60 mg once given 05/17 Mag IV again Phos PO and IV today Kidney and Neck MICAH noted need Parathyroid imaging and if Adenoma then surgery waiting for Testostron and Vit D level Endo advise appreciated Subjective ROS Limited/Unobtainable: No Constitutional: Reports: other - anxious to go home- has a flight to [place] Objective Objective Last 24 Hour Vital Signs Date Time Temp Pulse Resp B/P (MAP) Pulse Ox O2 Delivery O2 Flow Rate FiO2 05/19/18 04:00 71 05/19/18 04:00 98.9 75 20 134/77 96 Room Air 98.9 05/19/18 00:00 98.8 71 18 123/64 97 Room Air 98.8 05/18/18 23:39 75 05/18/18 20:00 99.1 78 20 125/68 95 Room Air 99.1 05/18/18 19:50 82 05/18/18 16:00 91 05/18/18 16:00 98.2 79 23 132/80 99 Room Air 98.2 05/18/18 12:00 98.1 80 22 124/80 97 Room Air 98.1 05/18/18 12:00 88 Intake and Output 05/18/18 05/19/18 19:00 07:00 Intake Total 1745 ml 800 ml Output Total 400 ml 1350 ml Balance 1345 ml -550 ml Intake Oral 720 ml 800 ml IV Total 1025 ml Output Urine Total 400 ml 1350 ml # Voids 1 Current Medications Medications (Trade) Dose Ordered Sig/Cedrick Route PRN Reason Start Time Stop Time Status Last Admin Dose Admin Acetaminophen (Tylenol) 500 mg Q4H PRN ORAL Mild Pain/Temp > 100.5 05/16/18 20:00 06/15/18 19:59 05/17/18 21:39 Bisacodyl (Dulcolax) 10 mg DAILYPRN PRN RECTAL Constipation 05/17/18 07:30 06/16/18 07:29 Calcitonin [place] (Miacalcin) 1 sprays DAILY NASAL 05/18/18 11:00 06/17/18 10:59 05/19/18 09:42 Docusate Sodium (Colace) 100 mg TID ORAL 05/17/18 18:00 06/16/18 08:59 05/19/18 09:43 Lansoprazole (Prevacid) 30 mg DAILY ORAL 05/16/18 20:30 06/15/18 20:29 05/19/18 09:43 Magnesium Hydroxide (Mom) 30 ml DAILYPRN PRN ORAL Constipation 05/17/18 07:30 06/16/18 07:29 05/18/18 20:26 Magnesium Sulfate 100 ml @ 100 mls/hr Q1H IVPB 05/19/18 11:00 05/19/18 14:59 05/19/18 11:07 Ondansetron HCl (Zofran) 4 mg Q6H PRN IVP Nausea & Vomiting 05/16/18 20:00 06/15/18 19:59 05/17/18 08:19 Phosphorus (Phospha 250 Neutral) 500 mg THREE TIMES A DAY ORAL 05/19/18 13:00 06/17/18 12:59 Potassium Phosphate 20 mm/ Sodium Chloride 281.6667 ml @ 46.944 m... ONCE IV 05/19/18 15:00 05/19/18 17:00 Sennosides (Senokot) 1 tab DAILY ORAL 05/17/18 09:00 06/16/18 08:59 05/19/18 09:46 Sodium Chloride 1,000 ml @ 125 mls/hr Q8H IV 05/18/18 10:30 06/15/18 10:29 05/19/18 11:05 Tamsulosin HCl (Flomax) 0.4 mg BEDTIME ORAL 05/16/18 21:00 06/15/18 20:59 05/18/18 20:27 Laboratory Tests 05/19/18 05:50: White Blood Count 6.5, Red Blood Count 4.57L, Hemoglobin 12.3L, Hematocrit 38.0L , Mean Corpuscular Volume 83, Mean Corpuscular Hemoglobin 26.9L, Mean Corpuscular Hemoglobin Concent 32.3, Red Cell Distribution Width 18.7H, Platelet Count 204, Mean Platelet Volume 6.9, Neutrophils (%) (Auto) 64.3, Lymphocytes (%) (Auto) 18.7L, Monocytes (%) (Auto) 10.4H, Eosinophils (%) (Auto ) 5.4H, Basophils (%) (Auto) 1.2, Sodium Level 138, Potassium Level 4.5, Chloride Level 110H, Carbon Dioxide Level 25, Anion Gap 3L, Blood Urea Nitrogen 17, Creatinine 1.5H, Estimat Glomerular Filtration Rate 49.0, Glucose Level 90, Uric Acid 4.9, Calcium Level 9.8, Phosphorus Level 1.8L, Magnesium Level 1.6L, Total Bilirubin 0.5, Aspartate Amino Transf (AST/SGOT) 38H, Alanine Aminotransferase (ALT/SGPT) 45, Alkaline Phosphatase 42L, Total Protein 5.6L, Albumin 2.3L, Globulin 3.3, Albumin/Globulin Ratio 0.7L 05/19/18 07:55: C-Reactive Protein, Quantitative < 0.4 Height (Feet): 5 Height (Inches): 10.00 Weight (Pounds): 210 General Appearance: no apparent distress Objective no change RONEY GROSS May 19, 2018 11:22
[2018-05-19 12:00] VITALS: BP 139/83
[2018-05-19] MEDS ORDERED: Phospha 250 Neutral tab ORAL SCH (13:00)
[2018-05-19] MEDS ORDERED: Potassium Phosphate 20 MM in NS 275 ML IV SCH (15:00)
--- NOTE | 2018-05-20 10:06 | Diagnostic Imaging Report ---
APPROVED REPORT CPT Code: 27153 Present Symptoms Comments: Screening BILATERAL: Imaging reveals a patent deep venous system bilaterally. There is no evidence of thrombus within the femoral, popliteal or tibial segments. The greater saphenous veins are also within normal limits. Doppler indicates normal spontaneous flow within these segments.
--- NOTE | 2018-05-21 08:09 | Discharge Summary ---
Discharge Summary Discharge Summary _ DATE OF ADMISSION: 05/16/2018 DATE OF DISCHARGE: 05/19/2018 REASON FOR ADMISSION: 51 years old male with past medical history significant for hypertension, dyslipidemia, GERD , nephrolithiasis in his 20s, hypogonadism, presented with three-weeks of generalized weakness and nausea. Laboratory workup done by his primary care provider revealed elevated creatinine and elevated calcium. Patient was sent to emergency room for evaluation. Patient reported poor appetite and generalized weakness. He complained off nausea but no vomiting, no abdominal pain, no fever, no chills. Vital signs were stable. Laboratory workup revealed calcium level 14.4 BUN 22 , creatinine 2.1. EKG revealed normal sinus rhythm, no acute ischemic changes. Troponin was negative. Urinalysis revealed no evidence of proteinuria, no evidence of UTI. Patient admitted with diagnosis of hypercalcemia, renal insufficiency CONSULTANTS: bridal gown fitter Dr. Salinas Assistant Project Engineer Dr. Madrigal [facility]: Patient was admitted to telemetry floor. Nephrology and endocrinology consult were requested. Patient started on aggressive intravenous hydration. Renal parameters and electrolytes were closely monitored. Nephrotoxins were avoided . Ionized calcium - 1.65. Patient was given one dose of Aredia. PTH level elevated -245 According to worker's compensation claims examiner, patient had a primary hyperparathyroidism which led to high calcium level and subsequently acute kidney injury. Renal ultrasound revealed no hydronephrosis and normal kidney echogenicity bilaterally. Thyroid ultrasound revealed bilateral thyroid nodules. Lipid panel within normal limits . TSH borderline . Testosterone and vitamin D levels stable. With IV hydration and Aredia, calcium down to normal -9.8. BUN down to 17 creatinine down to 1.5. Magnesium and phosphorus were replaced. Assistant Project Engineer and bridal gown fitter cleared patient for discharge. Patient will need parathyroid scan as outpatient as well as thyroid fine- needle aspiration of thyroid nodules. Patient is an appropriate surgical candidate, as per worker's compensation claims examiner, and should be referred to parathyroid surgeon as outpatient ( if adenoma on parathyroid scan) FINAL DIAGNOSES: Primary hyperparathyroidism Hypercalcemia, secondary to above Acute kidney injury (secondary to primary hyperparathyroidism and hypercalcemia ), improved Electrolyte imbalance: hypomagnesemia hypophosphatemia Thyroid nodules DISCHARGE MEDICATIONS: See Medication Reconciliation list. DISCHARGE INSTRUCTIONS: Patient was discharged home. Follow up with primary care provider in one week. Patient need parathyroid scan to be done as an outpatient. Patient is a surgical candidate should be referred by primary care provider to parathyroid surgery ( provided evidence of adenoma on parathyroid scan). Patient need thyroid fine-needle aspiration as outpatient. I have been assigned to dictate discharge summary for this account. I was not involved in the patient's management. Lu Cunningham NP May 21, 2018 08:09
== END 2018-05-19 13:45 | disposition home or self-care (01) | DRG 644 ==
LOC: EMR 17:12 → 2E 17:17 → EDBEDREQ 17:59
DX: E21.0 Primary hyperparathyroidism (principal); N17.9 Acute kidney failure, unspecified; E86.0 Dehydration; E78.5 Hyperlipidemia, unspecified; K21.9 Gastro-esophageal reflux disease without esophagitis; I10 Essential (primary) hypertension; G47.00 Insomnia, unspecified; E88.09 Other disorders of plasma-protein metabolism, not elsewhere classified; E04.1 Nontoxic single thyroid nodule; E83.42 Hypomagnesemia; E83.39 Other disorders of phosphorus metabolism; F19.11 Other psychoactive substance abuse, in remission
CPT/HCPCS: 36415; 71045; 76536; 76770; 80053; 80061; 81001; 81003; 82306; 82330; 82550; 82607; 82728; 82746; 82977; 83036; 83540; 83550; 83735; 83880; 83970; 84100; 84153; 84300; 84403; 84443; 84484; 84550; 85025; 86140; 93005; 93970; 99285; C9399; J2405; J2430